=== PATIENT | male | born 1990 | race Caucasian/White ===

== ENCOUNTER 2023-03-07 16:29 | Emergency (ER) | payer SELFPAY ==
[~2023-03-07] VITALS: Ht 180.3 cm; Wt 57.2 kg
[2023-03-07 16:37] VITALS: TEMP 96
[2023-03-07 18:10] LABS: HEMATOCRIT 35.2 % (42.0-52.0); HEMOGLOBIN 12.2 g/dl (13.5-17.5); MEAN CORPUSCULAR HEMOGLOBIN 29.8 pg (27.0-33.0); MEAN CORPUSCULAR HGB CONC 34.7 g/dl (32.0-36.5); MEAN CORPUSCULAR VOLUME 85.9 fl (80.0-96.0); PLATELET COUNT, AUTOMATED 358 10^3/uL (150-450); WHITE BLOOD COUNT 7.2 10^3/uL (4.0-10.0)
[2023-03-07 18:19] LABS: ACETAMINOPHEN LEVEL < 2.0 UG/ML (10.0-20.0)
[2023-03-07 18:20] LABS: ALBUMIN 3.7 G/DL (3.2-5.2); ALKALINE PHOSPHATASE 164 U/L (46-116); ALT/SGPT 58 U/L (7.0-40); AST/SGOT 51 U/L (<34); BILIRUBIN,DIRECT 0.1 MG/DL (<0.4); BILIRUBIN,TOTAL 0.3 MG/DL (0.3-1.2); BLOOD UREA NITROGEN 12 MG/DL (9-23); CALCIUM LEVEL 9.1 MG/DL (8.5-10.1); CARBON DIOXIDE LEVEL 25 MMOL/L (20-31); CHLORIDE LEVEL 105 MMOL/L (98-107); CREATININE FOR GFR 0.76 MG/DL (0.70-1.30); GLOMERULAR FILTRATION RATE > 60.0 (>60); GLUCOSE, FASTING 116 MG/DL (60-100); POTASSIUM SERUM 5.1 MMOL/L (3.5-5.1); SALICYLATE LEVEL < 3.0 MG/DL (<30); SODIUM LEVEL 137 MMOL/L (136-145); TOTAL PROTEIN 6.7 G/DL (5.7-8.2)
[2023-03-07 18:22] LABS: THYROID STIMULATING HORMONE 0.514 uIU/ML (0.55-4.78)
[2023-03-07] MEDS ORDERED: ADME100I2 SC (19:44)
[2023-03-07] MEDS ORDERED: GABA800T4 PO ×2 (19:44)
[2023-03-07] MEDS ORDERED: BASA100I SC (19:44)
[2023-03-07] MEDS ORDERED: HOME MED LIST COMPLETE! XX SCH (19:50)
[2023-03-07] MEDS ORDERED: NICOTINE 21MG/24HR 1 EA TRANSDERMAL TD ONE (20:00)
[2023-03-07] MEDS ORDERED: IBUPROFEN 600MG TAB PO ONE (20:35)
[2023-03-07 20:38] LABS: AMPHETAMINES LEVEL URINE NEGATIVE (NEGATIVE); BARBITURATES URINE NEGATIVE (NEGATIVE); BENZODIAZEPINES URINE NEGATIVE (NEGATIVE); PHENCYCLIDINE URINE NEGATIVE (NEGATIVE)
[2023-03-07 20:39] LABS: COCAINE METABOLITE URINE NEGATIVE (NEGATIVE); METHADONE URINE NEGATIVE (NEGATIVE); OPIATES URINE NEGATIVE (NEGATIVE)
[2023-03-07 20:42] LABS: CANNABINOIDS URINE POSITIVE (NEGATIVE)
[2023-03-07] MEDS ORDERED: ANALGESIC BALM CRM 3OZ TOP ONE (23:00)
[2023-03-07] MEDS ORDERED: GABAPENTIN 400MG CAP PO ONE (23:00)
[2023-03-08] MEDS ORDERED: hydrOXYzine 50 MG TAB PO ONE (05:05)
[2023-03-08 06:33] VITALS: BP 175/99
[2023-03-08] MEDS ORDERED: GABAPENTIN 400MG CAP PO ONE (07:25)
[2023-03-08] MEDS: INSULIN LISPRO (NovoLOG) PER UNIT SC SCH ×2 (07:30→11:59)
[2023-03-08] MEDS ORDERED: LEVEMIR (INSULIN DETEMIR) 1 UNITS/0.01ML SC SCH (09:00)
[2023-03-08] MEDS ORDERED: NICOTINE 21MG/24HR 1 EA TRANSDERMAL TD ONE (09:00)
[2023-03-08] MEDS ORDERED: HYDROmorphone 2 MG TAB PO ONE (09:15)
[2023-03-08 09:19] VITALS: O2SAT 99
[2023-03-08] MEDS ORDERED: INSULIN LISPRO (NovoLOG) PER UNIT SC SCH (21:00)
== END 2023-03-08 14:26 | disposition home or self-care (01) ==
LOC: M ED 16:29
DX: F10.129 Alcohol abuse with intoxication, unspecified (principal); F17.200 Nicotine dependence, unspecified, uncomplicated; E11.9 Type 2 diabetes mellitus without complications; Z79.4 Long term (current) use of insulin; Z79.899 Other long term (current) drug therapy
CPT/HCPCS: 36415; 71101; 80048; 80076; 80143; 80307; 82077; 84443; 85027; 87635; 99284; J1815